=== PATIENT | female | born 1970 | race African-American/Black ===

== ENCOUNTER 2016-06-18 10:22 | Inpatient (IN) | payer BC, OTHER ==
[~2016-06-18] VITALS: Ht 144.8 cm; Wt 118.8 kg
--- NOTE | ~2016-06-18 | P ---
[facility] [place] [address] PROCEDURE REPORT Name: FRANCISCO VARGAS Room #: 417-I [facility] IN ..#: [id number] Admission: 06/18/16 Attend Phys: Adrien Diaz MD Discharge: 06/19/16 Date of : 66 Report #: [id number] THIS REPORT FOR: //name// CC: Adrien Diaz MD DATE OF SERVICE: 06/19/2016 PROCEDURE PERFORMED: Upper endoscopy with biopsies. HISTORY OF PRESENT ILLNESS: The patient is a 46-year-old female with previous history of gastric bypass surgery approximately 8 years ago, presented with generalized fatigue and was noted to have a hemoglobin of 5.9. She has now been transfused 2 units. She denies any obvious blood in her stools. No previous history of endoscopy. Her hemoglobin at this time is 7.3, again after 2 units of packed cells. Plan is for EGD and colonoscopy today. DESCRIPTION OF PROCEDURE: The risks and benefits of the procedure were explained to the patient, those risks including but not limited to bleeding, perforation, the risk of sedation. She understood these risks and gave informed consent. Sedation was given using propofol per anesthesia. Next, using a standard Citra Stylen upper endoscope, the scope was placed in the patient's mouth and advanced under direct vision through the esophagus, stomach and into the jejunum. The esophagus was normal throughout. The GE junction was normal. Upon entering the stomach, obvious surgical changes consistent with gastric bypass were noted. There was a small gastric pouch. The gastric mucosa was normal. The anastomosis was widely patent and well healed. The scope was advanced into the jejunum without difficulty. No mucosal abnormalities were noted in the jejunum. Random biopsies were obtained to rule out the possibility of celiac sprue. The scope was then withdrawn and the procedure terminated. The patient tolerated the procedure well. IMPRESSION: Surgical changes of gastric bypass noted, otherwise normal upper endoscopy. RECOMMENDATIONS: 1. Biopsy results. 2. We will proceed with colonoscopy next today. Thank you for allowing me to participate in her care. <ELECTRONICALLY SIGNED> By: Cruzito Hernandez MD 06/20/16 1221 1103 205 Cruzito Hernandez MD /nt
--- NOTE | ~2016-06-18 | 2DMMODE ---
[facility] [place] [address] 2 D/M-MODE ECHOCARDIOGRAM Name: FRANCISCO VARGAS Room #: 417-I ADM IN ..#: [id number] Admission: 06/18/16 Attend Phys: Adrien Diaz, Discharge: Date of : 66 Date of Service: 06/19/16 1251 Report #: [id number] THIS REPORT FOR: //name// APPROVED REPORT EXAM: Comprehensive 2D, Doppler, and color-flow Echocardiogram Patient Location: Bedside/Room 417 Blood Pressure: 109/55 mmHg HR: 59 bpm Rhythm: NSR Other Information Study Quality: Good Indications Cardiomegaly per Xray. Hx: morbid obesity 2D Dimensions RVDd: 41.22 mm LVEF(%): 61.81 (>50%) IVSd: 9.43 (7-11mm) LVOT Diam: 20.61 (18-24mm) LVDd: 58.80 mm PWd: 9.35 (7-11mm) Ascending Aorta: 33.84 mm LVDs: 38.93 (25-40mm) Aortic Root: 31.00 mm Banerjee's LVEF: 61.81 % Volumes Left Atrial Volume (Systole) Single Plane 4CH: 86.63 mL Single Plane 2CH: 63.13 mL LA ESV Index: 41.00 mL/m2 Aortic Valve AoV Peak Sandro.: 1.95 m/s AO Peak Gr.: 15.24 mmHg LV Max P.35 mmHg LV Max: 1.26 m/s Mitral Valve MV PHT: 54.91 ms MV E Max Sandro.: 1.08 m/s E/A Ratio: 1.4 MV A Sandro.: 0.80 m/s MV Decel. Time: 189.34 ms Pulmonary Valve [facility] [address] [place] [address] 2 D/M-MODE ECHOCARDIOGRAM Name: FRANCISCO VARGAS Room #: 417-I [facility] IN .R.#: [id number] Admission: 06/18/16 Attend Phys: Adrien Diaz, Discharge: Date of : 66 Date of Service: 06/19/16 1251 Report #: [id number] PV Peak Sandro.: 1.35 m/s PV Peak Gr.: 7.30 mmHg Tricuspid Valve TR Peak Sandro.: 2.80 m/s RAP Estimate: 5.00 mmHg TR Peak Gr.: 31.29 mmHg RVSP: 36.00 mmHg Left Ventricle Left ventricle is mildly dilated. There is normal LV segmental wall motion. There is normal left ventricular wall thickness. Left ventricular systolic function is normal. LVEF is 55-60%. The left ventricular diastolic function is normal. Right Ventricle The right ventricle is normal size. The right ventricular systolic function is normal. Atria Left atrium is mild to moderately dilated. The right atrium size is normal. Aortic Valve The aortic valve is normal in structure. Trace aortic regurgitation. There is no aortic valvular stenosis. Mitral Valve The mitral valve is normal in structure. Trace mitral regurgitation. Tricuspid Valve The tricuspid valve is normal in structure. There is trace tricuspid regurgitation. The right atrial pressure is estimated at 5 mmHg. There is mild pulmonary hypertension with an estimated PAP of 36mmHg. Pulmonic Valve The pulmonary valve is normal in structure. Mild pulmonic regurgitation. Great Vessels The aortic root is normal in size. The ascending aorta is normal in size. IVC is normal in size and collapses >50% with inspiration. Pericardium There is no pericardial effusion. [facility] [address] [place] [address] 2 D/M-MODE ECHOCARDIOGRAM Name: VARGASFCOFRANCISCO M Room #: 417-I [facility] IN ..#: [id number] Admission: 06/18/16 Attend Phys: Adrien Diaz, Discharge: Date of : 66 Date of Service: 06/19/16 1251 Report #: [id number] <Conclusion> Left ventricle is mildly dilated. LVEF is 55-60%. Left atrium is mild to moderately dilated. Trace aortic regurgitation. Trace mitral regurgitation. There is trace tricuspid regurgitation. The right atrial pressure is estimated at 5 mmHg. There is mild pulmonary hypertension with an estimated PAP of 36mmHg. Mild pulmonic regurgitation. <ELECTRONICALLY SIGNED> By: Alexander Pugh MD 06/19/16 1251 1251 1251 Alexander Pugh MD /INF
--- NOTE | ~2016-06-18 | P ---
[facility] [place] [address] PROCEDURE REPORT Name: FRANCISCO VARGAS Room #: 417-I [facility] IN ..#: [id number] Admission: 06/18/16 Attend Phys: Adrien Diaz MD Discharge: 06/19/16 Date of : 66 Report #: [id number] THIS REPORT FOR: //name// CC: Adrien Diaz MD DATE OF SERVICE: 06/19/2016 PROCEDURE PERFORMED: Colonoscopy. HISTORY OF PRESENT ILLNESS: The patient is a 46-year-old female with significant anemia of 5.9. Denies any obvious bright red blood per rectum or melanotic stools. No family history of colon cancer. Upper endoscopy was just performed showing gastric bypass surgery, anastomosis, but otherwise normal. DESCRIPTION OF PROCEDURE: The risks and benefits of the procedure were explained to the patient, those risks including but not limited to bleeding, perforation, the risk of sedation. She understood these risks and gave informed consent. Sedation was given using propofol per anesthesia. Next, a digital rectal exam was initially performed, which was normal. Next, using a standard [employer] colonoscope, the scope was placed in the patient's anus and advanced under direct vision to the cecum. The overall prep was good. The cecum and ileocecal valve were normal in appearance. The ascending, transverse, descending and sigmoid colon were all normal. The rectal mucosa was normal. On retroflexion, small nonbleeding internal hemorrhoids were noted, otherwise normal colonoscopy. The scope was then withdrawn and the procedure terminated. The patient tolerated the procedure well. IMPRESSION: 1. Small internal hemorrhoids. 2. Otherwise, normal colonoscopy. RECOMMENDATIONS: No stigmata of bleeding on EGD and colonoscopy today. We will await biopsies to rule out the possibility of celiac sprue. Suspect anemia may be secondary to low iron, oral intake or poor absorption. May need to consider IV iron therapy. We will also Hemoccult test stools. Thank you for allowing me to participate in her care. <ELECTRONICALLY SIGNED> By: Cruzito Hernandez MD 06/20/16 1221 1105 2225 Cruzito Hernandez MD /nt
--- NOTE | ~2016-06-18 | S ---
[facility] [place] [address] SURGICAL PATH RPT PROCEDURE Name: VARGASLADI Room #: 417-I DIS IN M.R.#: [id number] Admission: 06/18/16 Date of : 66 Discharge: 06/19/16 Report #: [id number] Path Case #: [id number] PATHOLOGY REPORT COLLECTION DATE: 06/19/2016 RECEIVED DATE: 06/19/2016 SUBMITTING PHYS: Dr. Cruzito Hernandez OTHER PHYS: Dr. Adrien Diaz SPECIMEN(S) RECEIVED: A.Small bowel bx * * * * * * * * * * * * FINAL DIAGNOSIS: "Small bowel bx," biopsy: - Small bowel mucosa with minimal histologic alterations; no evidence of celiac sprue. (CLW:; d/t: 06/20/16) PATHOLOGIST: Paulina Lerma M.D. REPORT ELECTRONICALLY SIGNED BY: Paulina Lerma M.D. DATE/TIME: 06/20/2016 15:45 * * * * * * * * * * * * GROSS PATHOLOGY: Received in formalin labeled "Ladi Vargas, small bowel biopsy," are four segments of alcantar soft tissue measuring 1.0 x 0.9 x 0.1 cm in aggregate dimensions and ranging from 0.3 to 0.9 cm in maximum dimension. The specimen is submitted entirely in cassette A1. (CAA; 06/19/2016) CLINICAL HISTORY: R/O celiac INITIAL CPT CODE(S): A; 24436 Professional services performed by [facility] at [facility] [address] [place] [address] Technical services performed by [facility] at [address] [place] [id number]. [facility] [address] [place] [address] SURGICAL PATH RPT PROCEDURE Name: LADI VARGAS Room #: 417-I [facility] IN M.R.#: [id number] Admission: 06/18/16 Date of : 66 Discharge: 06/19/16 Report #: [id number] Path Case #: [id number] [address] PHONE: [phone] DIRECTOR: Almas Roland M.D. * * * END OF REPORT * * *
--- NOTE | ~2016-06-18 | H ---
[facility] [place] [address] HISTORY AND PHYSICAL Name: FRANCISCO VARGAS John Room #: 417-I ADM IN M.R.#: [id number] Admission: 06/18/16 Attend Phys: Adrien Diaz MD Discharge: Date of : 66 Report #: [id number] THIS REPORT FOR: //name// CC: Adrien Diaz DATE OF SERVICE: 06/18/2016 CHIEF COMPLAINT: Weakness. HISTORY OF PRESENT ILLNESS: This patient is a 46-year-old -[place]anish female, who I saw for the first time on Sunday for weakness and fatigue. I did lab in the office, and hemoglobin came back at 5.9. I advised her to go to the ER for evaluation, she declined. She called me today, and we decided to admit her for evaluation of severe anemia and transfusion if needed. Her past history is significant for prior gastric bypass surgery. She states that she had had anemia in the past and had been followed at and had at least 6 transfusions over the last 2 years. She was told that she was going to get some iron infusions, but that never happened. She has never had endoscopy. She is not really very thorough in her history, and does not really know much about what has happened at . She apparently could no longer due to insurance reasons. PAST MEDICAL HISTORY: Otherwise, unremarkable. MEDICATIONS: She just takes multiple vitamins, and she takes iron, but does not know how much. She takes hydroxyzine p.r.n., aspirin 81 mg a day, multiple vitamins, vitamin B12 and vitamin A. ALLERGIES: REGLAN and PENICILLIN. SOCIAL HISTORY: She does not smoke or drink. She is . REVIEW OF SYSTEMS: CONSTITUTIONAL: No fever or chills. HEENT: No headaches or visual changes. CHEST: She has shortness of breath with activity. No chest pain. GASTROINTESTINAL: She is unaware of any vomiting or diarrhea. No black stools or blood in her stools. GENITOURINARY: No burning or frequency. EXTREMITIES: No swelling, skin lesions, or wounds. OBJECTIVE: GENERAL: She is a very pleasant, -[place] female, who is in no acute distress. She does appear pale in her lips, eyelids, and nailbeds. Her mucous membranes are moist. NECK: Supple, without adenopathy, thyromegaly, or bruits. [address] [address] HISTORY AND PHYSICAL Name: FRANCISCO VARGAS Room #: 417-I [facility] IN ..#: [id number] Admission: 06/18/16 Attend Phys: Adrien Diaz MD Discharge: Date of : 66 Report #: [id number] CHEST: Clear to auscultation. CARDIOVASCULAR: Regular rhythm without murmur, no S4. ABDOMEN: Soft. No masses. Bowel sounds are active. EXTREMITIES: Show no edema. Pulses are intact. ASSESSMENT AND PLAN: Profound anemia on outpatient CBC. We will repeat that now. I suspect this is accurate. We will type and screen and likely transfuse. Consult Hematology for iron deficiency workup. We will check iron TIBC levels, B12 and folate levels. Once we get that data back, we will resume those medications. I am starting her on Protonix daily get GI to consult for possible gastrointestinal bleed. She will need upper and lower scope at some point. By: 1231 1759 Adrien Diaz MD /nt
[~2016-06-18 10:22] MED LIST: ASCRIPTIN 325325 MG PO; ASPIR 8181 MG PO; B12 5,000 MCG1 EACH SL; CENTRUM SILVER1 EAC4 PO; CIPROFLOXACIN500 M1 PO; HEALTHY EYES C1 EACH PO; HYDROXYZINE HCL25 M2 PO; IRON159 MG PO; NAPROSYN500 MG PO; NORCO 5-325 TA1 EACH PO; VITAMIN E100 M1 MC
[2016-06-18 11:36] VITALS: BP 110/60
[2016-06-18 14:10] LABS: MCV 58.6 fL (80.0-100.0); RBC 3.42 mil/uL (4.20-5.00); WBC 5.9 thou/uL (4.0-11.0)
[2016-06-18 14:12] LABS: MCH 16.8 pg (26.0-34.0); MCHC 28.6 g/dL (28.0-37.0); RDW 23.8 % (10.5-14.5)
[2016-06-18 14:14] LABS: HEMOGLOBIN 5.7 gm/dL (12.0-15.0)
[2016-06-18 14:31] LABS: ALBUMIN 3.2 g/dL (3.4-5.0); CALCIUM 8.5 mg/dL (8.5-10.1); CREATININE 0.6 mg/dL (0.6-1.3); POTASSIUM 3.7 mmol/L (3.5-5.1); TOTAL BILIRUBIN 0.5 mg/dL (<0.1-1.0)
[2016-06-18 14:57] LABS: FOLIC ACID 19.4 ng/mL (8.6-58.9)
[2016-06-18 15:53] VITALS: BP 111/63
[2016-06-18 16:03] VITALS: BP 108/71; BP 138/75
[2016-06-18 18:31] VITALS: BP 127/70; BP 135/78; BP 138/75
[2016-06-18 22:22] LABS: HEMATOCRIT 25.9 % (37.0-47.0); MCH 19.2 pg (26.0-34.0); RBC 4.05 mil/uL (4.20-5.00); RDW 29.5 % (10.5-14.5); WBC 7.4 thou/uL (4.0-11.0)
[2016-06-18 22:24] LABS: HEMOGLOBIN 7.8 gm/dL (12.0-15.0); MCV 64.1 fL (80.0-100.0)
[2016-06-19 04:00] VITALS: BP 110/54
[2016-06-19 06:20] LABS: HEMATOCRIT 24.5 % (37.0-47.0); HEMOGLOBIN 7.3 gm/dL (12.0-15.0); MCH 19.2 pg (26.0-34.0); MCHC 29.8 g/dL (28.0-37.0); MCV 64.4 fL (80.0-100.0); RBC 3.8 mil/uL (4.20-5.00); RDW 28.4 % (10.5-14.5); WBC 5.8 thou/uL (4.0-11.0)
[2016-06-19 08:44] VITALS: BP 109/55
[2016-06-19 15:26] VITALS: BP 109/55
[2016-06-19 15:32] VITALS: BP 115/54
[2016-06-19 19:18] VITALS: BP 109/55
[2016-06-19 20:00] VITALS: BP 133/61
== END 2016-06-19 21:30 | disposition home or self-care (01) | DRG 812 ==
LOC: 4E 10:22
PROVIDERS: Family Medicine
PROC: 30233N1 Transfusion of Nonautologous Red Blood Cells into Peripheral Vein, Percutaneous Approach (ICD-10-PCS; principal; 2016-06-18)
PROC: 0DJD8ZZ Inspection of Lower Intestinal Tract, Via Natural or Artificial Opening Endoscopic (ICD-10-PCS; 2016-06-19)
PROC: 0DB88ZX Excision of Small Intestine, Via Natural or Artificial Opening Endoscopic, Diagnostic (ICD-10-PCS; 2016-06-19)
DX: D50.9 Iron deficiency anemia, unspecified (principal); Z68.43 Body mass index [BMI] 50.0-59.9, adult; E66.01 Morbid (severe) obesity due to excess calories; D51.9 Vitamin B12 deficiency anemia, unspecified; J30.2 Other seasonal allergic rhinitis; K64.8 Other hemorrhoids; Z88.0 Allergy status to penicillin; Z88.8 Allergy status to other drugs, medicaments and biological substances; Z98.84 Bariatric surgery status; Z79.899 Other long term (current) drug therapy; Z78.0 Asymptomatic menopausal state; Z90.49 Acquired absence of other specified parts of digestive tract; Z80.0 Family history of malignant neoplasm of digestive organs; Z80.3 Family history of malignant neoplasm of breast
CPT/HCPCS: 10084; 62110; 62900; 70005

== ENCOUNTER → 2016-06-27 | Outpatient (CLI) | payer BC, OTHER ==
[2016-06-27 11:25] VITALS: BP 119/51
== END ==
LOC: OPONC 07:49
DX: D50.9 Iron deficiency anemia, unspecified (principal)
CPT/HCPCS: 95000; 95001

== ENCOUNTER → 2016-10-06 | Outpatient (CLI) | payer BC, OTHER ==
[~2016-10-06] MED LIST changes: +B12INJ SUBQ; +INJECTAFER750 MG/15 IV; +LASIX 20 MG TAB20 MG PO; +POTASSIUM20 PO
[2016-10-06 09:05] VITALS: BP 107/68
[2016-10-06 10:05] VITALS: BP 120/72
[2016-10-06 10:25] VITALS: BP 115/66
== END ==
LOC: OPONC 00:59
DX: D50.9 Iron deficiency anemia, unspecified (principal)
CPT/HCPCS: 95000

== ENCOUNTER 2019-06-22 22:20 | Inpatient (IN) | payer OTHER, BC ==
[~2019-06-22] VITALS: Ht 149.9 cm; Wt 118.4 kg
[2019-06-22 22:22] VITALS: BP 140/91
[2019-06-22 22:49] LABS: URINE BILIRUBIN NEGATIVE (Negative); URINE BLOOD NEGATIVE (Negative); URINE CLARITY CLEAR; URINE COLOR YELLOW; URINE GLUCOSE-RANDOM* NEGATIVE (Negative); URINE KETONES NEGATIVE (Negative); URINE LEUKOCYTES-REFLEX NEGATIVE (Negative); URINE NITRITE-REFLEX NEGATIVE (Negative); URINE PROTEIN (DIPSTICK) NEGATIVE (Negative)
[2019-06-22 23:27] LABS: BASOPHILS 0.4 % (0.0-2.0); EOSINOPHILS 1.1 % (0.0-3.0); HEMATOCRIT 42.8 % (37.0-47.0); HEMOGLOBIN 14.3 gm/dL (12.0-15.0); LYMPHOCYTES 22.5 % (24.0-44.0); MCH 29.7 pg (26.0-34.0); MCHC 33.3 g/dL (28.0-37.0); MCV 89.2 fL (80.0-100.0); MONOCYTES 6.3 % (1.0-8.0); PLATELET COUNT 187 thou/uL (150-400); POLYS 69.7 % (36.0-66.0); RDW 15.6 % (10.5-14.5); WBC 5.7 thou/uL (4.0-11.0)
[2019-06-22 23:44] LABS: ALBUMIN 3.6 g/dL (3.4-5.0); ANION GAP 7 mmol/L (7-16); CALCIUM 9.3 mg/dL (8.5-10.1); CHLORIDE 101 mmol/L (98-107); CO2 27 mmol/L (21-32); CREATININE 0.7 mg/dL (0.6-1.0); GLUCOSE 98 mg/dL (74-106); LIPASE 80 U/L (73-393); POTASSIUM 3.9 mmol/L (3.5-5.1); SGOT 43 U/L (15-37); SGPT 41 U/L (30-65); SODIUM 135 mmol/L (136-145); TOTAL BILIRUBIN 0.8 mg/dL (<0.1-1.0); TOTAL PROTEIN 7.8 g/dL (6.4-8.2); TROPONIN-I <0.06 ng/mL (<0.06)
[2019-06-22] MEDS ORDERED: TOPAMAX 25 MG T25 M1 PO (23:47)
[2019-06-22] MEDS ORDERED: PHENTERMINE H37.5 MG PO (23:48)
[2019-06-22 23:54] LABS: LARGE PLATELETS OCCASIONAL
[2019-06-22 23:58] LABS: BUN 8 mg/dL (7-18)
[2019-06-23 01:23] VITALS: BP 132/82
[2019-06-23 01:27] VITALS: BP 132/82
[2019-06-23 02:00] VITALS: BP 130/70
--- NOTE | 2019-06-23 02:26 | NUR ---
PT ARRIVED FROM THE ER @0145 THIS MORNING. PT A&OX4 UP WITH STEADY GAIT. IV INTACT AND FLUIDS STARTED. PT ORIENTED TO ROOM AND ADMISSION DONE. CALL LIGHT IN REACH. VSS. WILL CONT TO MONITOR TILL EOS.
[2019-06-23 04:00] VITALS: BP 139/72
[2019-06-23 08:30] VITALS: BP 116/75
--- NOTE | 2019-06-23 08:55 | EKG ---
[facility] [place] [address] ELECTROCARDIOGRAM REPORT Name: FRANCISCO VARGAS Room #: 439- ADM IN M.R.#: [id number] Admission: 06/23/19 Attend Phys: Anatoliy Ruiz, Discharge: Date of : 66 Report #: [id number] THIS REPORT FOR: cc: Adrien Diaz MD, Jane E. DO Lundgren, Craig H. MD [facility] ~ THIS REPORT FOR: //name// [facility] ED Test Date: 2019-06-22 Test Time: 22:40:12 Pat Name: FRANCISCO VARGAS Department: Room: 439 Gender: F Processing Operator: KRAIG : 1970 Requested By: Ed Sutherland Order Number: [id number] MD: Chico Pierre Measurements Intervals [place] Rate: 78 P: 46 NE: 149 QRS: -11 QRSD: 104 T: 38 QT: 386 QTc: 440 Interpretive Statements Sinus rhythm Abnormal T, consider ischemia, anterior leads No previous ECG available for comparison Electronically Signed On 06-23-2019 8:54:25 CDT by Chico Pierre [email or web address] <ELECTRONICALLY SIGNED> By: Chico Pierre MD, FAC 06/23/19 0854 2240 Chico Pierre MD, [facility] /EPI
--- NOTE | 2019-06-23 14:10 | NUR ---
PT ADMITTED RELATED TO SBO. CM REVIEWED CHART AND SPOKE WITH CARE TEAM. CM CALLED AND SPOKE WITH PT THIS DAY. PT APPEARED TO BE A&O X4. CM ROLE INTRODUCED. PT INDICATED SHE LIVES IN A HOUSE WITH HER SPOUSE WITH STEPS AND A WC RAMP TO ENTER. 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 PT INDICATED NO HH HX. PT INDICATED SHE PLANS TO RETURN HOME ONCE MEDICALLY STABLE. PT IS TO HAVE HERNIA REPAIR TOMORROW. CM TO FOLLOW INDICATED WITH DC PLANNING.
--- NOTE | 2019-06-23 17:56 | NUR ---
PT A&OX4. IV INTACT IN R WRIST IFUSING CONT FLUIDS W/O COMPS. NPO AT THIS TIME. C/O PAIN TO R SIDE ABD. TOLERATING IV PAIN MEDS.CALL LIGHT WITH IN REACH, PT IS UP AD ITZ IN ROOM. WILL CONT POC.
[2019-06-23 19:24] VITALS: BP 142/72
[2019-06-24] VITALS (7 sets, daily range): BP systolic 107–146; BP diastolic 59–97
--- NOTE | 2019-06-24 04:00 | NUR ---
Pt been up ad yanelis. npo. pain well managed by morphine IVP.voiding okay. Afebrile. BS present. Some nausea, no emesis. Given zofran prn x 2. Calls appropriately.
[2019-06-24 05:35] LABS: HEMATOCRIT 38.5 % (37.0-47.0); HEMOGLOBIN 12.6 gm/dL (12.0-15.0); MCH 29.3 pg (26.0-34.0); MCHC 32.6 g/dL (28.0-37.0); MCV 89.7 fL (80.0-100.0); RBC 4.29 mil/uL (4.20-5.00); RDW 15.7 % (10.5-14.5); WBC 3.7 thou/uL (4.0-11.0)
[2019-06-24 05:47] LABS: ALBUMIN 2.6 g/dL (3.4-5.0); CALCIUM 8.2 mg/dL (8.5-10.1); CREATININE 0.5 mg/dL (0.6-1.0); MAGNESIUM 1.7 mg/dL (1.8-2.4); POTASSIUM 3.4 mmol/L (3.5-5.1)
--- NOTE | 2019-06-24 09:11 | NUR ---
PT A&OX4, VSS, PAIN IN ABDOMEN. PATIENT DOWN FOR HERNIA REPAIR THIS A.M. BOWEL SOUNDS ACTIVE, ABDOMEN SOFT AND ROUND. IV PATENT AND FLUIDS RUNNING. NO SIGNS OF DISTRESS. WILL CONTINUE TO MONITOR.
--- NOTE | 2019-06-24 14:56 | NUR ---
PT UNDERWENT SURGERY FOR HERNIA REPAIR THIS DAY. CM TO FOLLOW INDICATED WITH DC PLANNING.
--- NOTE | 2019-06-25 02:45 | NUR ---
RECIEVED CARE OF THIS PATIENT AT 1900. APPLIED ABD BINDER. INCISION ON ABD WITH D/I DRESSING. REJI DRAIN WITH SANGUINEOUS FLUID. HAS EPIDURAL. C/O BREAKTHROUGH PAIN. PO MED GIVEN WITH GOOD RELIEF. REMAINS ON BEDREST. MAX PATENT DANIELLE URINE. REMAINS ON O2 SAT MONITOR. IV PATENT IN LH WITH IV FLUIDS INFUSING. SLEPT MOST OF NIGHT.
[2019-06-25 04:13] VITALS: BP 100/56
[2019-06-25 05:47] LABS: HEMATOCRIT 36.5 % (37.0-47.0); MCH 29.5 pg (26.0-34.0); MCHC 32.8 g/dL (28.0-37.0); RBC 4.06 mil/uL (4.20-5.00); RDW 15.8 % (10.5-14.5); WBC 8.7 thou/uL (4.0-11.0)
[2019-06-25 06:01] LABS: ALBUMIN 2.4 g/dL (3.4-5.0); CALCIUM 8.2 mg/dL (8.5-10.1); CREATININE 0.9 mg/dL (0.6-1.0); MAGNESIUM 1.6 mg/dL (1.8-2.4); PHOSPHORUS 3.7 mg/dL (2.5-4.9); POTASSIUM 3.8 mmol/L (3.5-5.1)
[2019-06-25 07:49] VITALS: BP 111/58
--- NOTE | 2019-06-25 13:12 | NUR ---
CARE TEAM INDICATED THAT PT IS PROGRESSING TOWARD GOAL OF DISCHARGE. PT IS POD#[address] AND ANTICIPATE EPIDURAL UNITL 4 OR 06/26. PT IS ON FULL LIQUID DIET. CM TO FOLLOW INDICATED WITH DC PLANNING.
[2019-06-25 17:05] VITALS: BP 143/90
--- NOTE | 2019-06-25 18:21 | NUR ---
VSS-AFEBRILE. C/O SIGNIFICANT ABDOMINAL PAIN DESPITE INFUSING EPIDURAL. CONFIRMED WITH ANESTHESIA, ORDER TO TREAT PAIN WITH ORAL AND IV MEDICATIONS. ANESTHESIA ORDERED THAT EPIDURAL AND MAX CATHETER REMAIN IN PLACE TODAY. PARTIAL RELIEF NOTED WITH IV AND PO PAIN MEDICATIONS. TURNED EVERY TWO HOURS, EDUCATED PATIETM ON IMPORTANCE OF MOVING AROUND AND USING INCENTIVE SPIROMETER AT LEAST EVERY TWO HOURS. VERBALIZED UNDERSTANDING, BUT REFUSED TO DEMONSTRATE USE OF IS. LUNGS TIGHT/DIMINSHED IN ALL SANTOS BILATERALLY. ABDOMINAL INCISION INTACT WITH DERMABOND AND NO DRAINAGE. HYPOACTIVE BS. PT LIMITED DUE TO INABILITY TO GET PATIENT OUT OF BED. CALLS APPROPRIATELY FOR ANY NEEDED ASSISTANCE.
[2019-06-25 19:30] VITALS: BP 121/60
--- NOTE | 2019-06-26 03:00 | NUR ---
ASSESSMENT COMPLETED. PT WITH MAX TO D/D, ADEQUATE OUTPUT NOTED. ABDOMINAL BINDER IN PLACE-SURGICAL INCISION LOOKS OKAY.REJI DRAIN WITH SOME SCANT AMOUNT OF SS DRAINAGE.PT WITH EPIDIURAL RUNNING AND CAPNOGRAPHY IN PLACE. PT REPORTING PAIN AT A ZERO. PT AROUSABLE BUT CAPNO KEPT GOING OFF SENSING C02 ABOVE LIMITS. ENCOURAGED PATIENT TO COUGH AND DEEP BREATH BUT OBSERVED NO CHANGES. O2 SATURATION STEADILY AT AROUND 98-100% AND RESPIRATIONS STEADY BUT SHALLOW.RESPIRATORY THERAPIST CONFIRMED SETTINGS ON CAPNOGRAPHY.CALLED DOCTOR AND RECEIVED ORDERS TO D/C. EPIDIURAL RECEIVED. EXPLAINED TO PATIENT WHY AND SHE WAS AGREEABLE. WILL WORK WITH IVP AND ORAL PAIN MEDICATIONS.EDUCATED PATIENT ON IMPORTANCE OF INCREASING ACTIVITY AND USING I/S.WILL CONTINUE TO CLOSELY MONITOR THROUGH REST OF SHIFT AND FOLLOW WITH POC.
[2019-06-26 04:15] VITALS: BP 132/76
[2019-06-26 05:44] LABS: HEMATOCRIT 35.6 % (37.0-47.0); HEMOGLOBIN 11.8 gm/dL (12.0-15.0); MCHC 33.1 g/dL (28.0-37.0); MCV 90.8 fL (80.0-100.0); RBC 3.92 mil/uL (4.20-5.00); RDW 15.9 % (10.5-14.5); WBC 7.7 thou/uL (4.0-11.0)
[2019-06-26 05:56] LABS: ALBUMIN 2.4 g/dL (3.4-5.0); CALCIUM 8.2 mg/dL (8.5-10.1); CREATININE 0.5 mg/dL (0.6-1.0); PHOSPHORUS 2.6 mg/dL (2.5-4.9); POTASSIUM 3.5 mmol/L (3.5-5.1)
[2019-06-26 07:30] VITALS: BP 137/66
--- NOTE | 2019-06-26 15:05 | NUR ---
PT PROGRESSING TOWARD GOAL OF DISCHARGE. CM FOLLOWING REGARDING DC PLANNING.
--- NOTE | 2019-06-26 18:05 | NUR ---
Assumed pt care at 7am.Pt in and out of bed with assist as needed.Assessment completed.vss.Pt tolerated diet and meds.Bed bath given after breakfast.Pt able to actively participated.Dr Ruiz rounded on pt early this am.New order noted.Pt on scheduled tylenol po for pain.Additional oxy given for abdominal pain with partial relief.Adequate dbloody drainage noted in lindy drain.Pt now back in bed eating dinner.Will continue to monitor.
[2019-06-26 20:11] VITALS: BP 121/81
[2019-06-27 00:27] VITALS: BP 122/65
--- NOTE | 2019-06-27 03:54 | NUR ---
ASSUMED PT CARE AROUND 1914. AXOX4. ABD INCISION AND DRESSING C,D,I. ABDOMINAL BINDER APPLIED AT ALL TIMES. PAIN MANAGED PER MD ORDER. VSS. FLOEY INTACT. REJI INTACT. IV REPLAVED TO RFA. NO S/S ACUTE DISTRESS NOTED OR REPORTED AT THIS TIME. WILL CONT TO MONITOR FOR ANY CHANGES IN CONDITION.
[2019-06-27 04:11] VITALS: BP 136/83
[2019-06-27 07:16] VITALS: BP 130/88
[2019-06-27 11:13] VITALS: BP 134/77
[2019-06-27 15:49] VITALS: BP 137/90
--- NOTE | 2019-06-27 16:22 | NUR ---
IT IS ANTICPATED THAT PT WILL LIKELY BE ABLE TO DC HOME WITH NO NEEDS ONCE MEDICALLY STABLE. DRAIN WAS DC'D TODAY. SHOULD PT NEED HH SERVICES CALL [facility] AT FAX CLINICAL INFO AND ORDERS TO .
[2019-06-27 19:20] VITALS: BP 150/92
--- NOTE | 2019-06-27 19:40 | NUR ---
PATIENT ALERT AND ORIENTED AND WAS UP TO CHAIR FOR SEVERAL HOURS TODAY AND WALKED X 1 IN THE HALLWAY. PATIENT DIDN'T WANT TO WALK ANYMORE TODAY. MAX CATHETER REMOVED. PATIENT PASSING GAS AND URINE BUT NO BOWEL MOVEMENT. PATIENT REFUSED RECTAL SUPPOSITORY.
[2019-06-28 03:45] VITALS: BP 137/80
--- NOTE | 2019-06-28 04:59 | NUR ---
Assumed pt care @191. pt a&ox4. ambulates with standby assist to the bathroom. aguayo catheter was taken out yesterday and pt a able to void with no problems. incision site clean, and intact with dermabond in place. pt has abdominal binder in place. REJI drain in place and intact, draining small amout of serosanguineous fluid. pain controlled with PO pain med. pt denies nausea. pt had a small BM this am but has been passing alot of gas. pt denies constipation or discomfort. v/s stable. no s/s of distress. will cont to monitor
[2019-06-28 08:00] VITALS: BP 144/75
[2019-06-28 13:29] VITALS: BP 144/75
--- NOTE | 2019-06-28 14:45 | NUR ---
Assumed pt care this am, abdominal binder in place, surgical wound clean dry and intact. REJI drain with minimal drainiange less that 5 ml. Pain is managed with medications. Pt is able to ambulate in her room, this is encouraged. POC followed, with no signs or verbalizations of distress have been noted. REJI drain removed as per Dr. Moseley instructions and DC instructions given to the pt along with prescriptions. IV removed, awaiting for picker packer.
== END 2019-06-28 15:38 | disposition home or self-care (01) | DRG 335 ==
LOC: ER 22:20 → EROBS 06-23 01:21 → 4S 06-23 01:21 → ENTRNSPT 06-28 14:57 → 4S 06-28 15:38
PROVIDERS: Emergency Medicine; Surgery; ADMIT Surgery
PROC: 0WUF0JZ Supplement Abdominal Wall with Synthetic Substitute, Open Approach (ICD-10-PCS; principal; 2019-06-24)
PROC: 0DNU0ZZ Release Omentum, Open Approach (ICD-10-PCS; principal; 2019-06-24)
DX: K43.0 Incisional hernia with obstruction, without gangrene (principal); E43 Unspecified severe protein-calorie malnutrition; Z68.43 Body mass index [BMI] 50.0-59.9, adult; E66.01 Morbid (severe) obesity due to excess calories; E87.6 Hypokalemia; Z98.84 Bariatric surgery status; Z90.49 Acquired absence of other specified parts of digestive tract; Z79.899 Other long term (current) drug therapy; Z88.0 Allergy status to penicillin; Z88.8 Allergy status to other drugs, medicaments and biological substances; E83.42 Hypomagnesemia; K66.0 Peritoneal adhesions (postprocedural) (postinfection)
CPT/HCPCS: 10195; 50010; 50101; 50386; 50417; 50455; 51114; 56524; 56525; 56526; 56529; 57108; 62110; 62900; 65075; 70005